=== PATIENT | male | born 1990 | race Caucasian/White ===

== ENCOUNTER 2019-08-08 16:45 | Emergency (ER) | payer MEDICAID, SELFPAY ==
[2019-08-08 16:41] VITALS: BP 149/97; PULSE 88; RESP 20; TEMP 36.5; O2SAT 96
--- NOTE | 2019-08-08 16:45 | ED.GENADUL_ITS ---
Discharge Plan Disposition Patient Disposition: HOME Condition: Improving Discharge Details Chief Complaint: RespSymp Clinical Impression: Acute dehydration, Acute hypokalemia, URI (upper respiratory infection) Primary Care Provider: Elbert Zhao ED Provider: Inna Fernandes Home Meds and New Rx's Prescriptions: Continued valacyclovir 500 MG tablet 500 mg PO DAILY RF: 0 lorazepam 1 MG tablet 1 tab PO PRN PRNRF: 0 trazodone 50 mg Tablet 100 mg PO QHS PRNRF: 0 naltrexone 50 mg Tablet 50 mg PO BID RF: 0 dextroamphetamine-amphetamine [Adderall] 20 mg Tablet 20 mg PO BID RF: 0 gabapentin 300 mg Capsule 300 mg PO DAILY PRNRF: 0 bupropion HCl [Wellbutrin XL] 300 mg Tablet Extended Release 24 Hr 300 mg PO DAILY RF: 0 bupropion HCl [Wellbutrin XL] 150 mg Tablet Extended Release 24 Hr 150 mg PO QAM RF: 0 Discharge Instructions Instructions: Dehydration (ED), Hypokalemia (ED), Upper Respiratory Infection (ED) Additional Instructions: Encourage water intake. Please increase potassium in your diet and begin potassium supplementation. Do not drink alcohol. Please take your medications only as prescribed. At this time, we are assuming you are COVID positive as we are unable to obtain testing and your symptoms are concerning. At this time, there is concern that you have been exposed and may have symptoms of COVID-19. We are unable to obtain testing and you should therefore quarantine for the next 14 days. It is very important that you self-quarantine and stay at home for the next 14 days. Please see attached information on quarantine and helping prevent the spread of this to family and the community. Encourage water intake. You may use Tylenol and/or Ibuprofen as needed for discomfort. Follow directions on label. If you develop difficulty breathing, shortness of breath, severe headaches, stiff neck, chest pain or other new/worsening symptoms please seek care urgently once again. Please CALL prior to coming back. Please contact your primary care to schedule follow-up appointment at the end of the week. You are opting to leave prior to the results of your testing. I will contact you with any unusual results and we will we will need to have these reassessed by her primary care provider Stand Alone Forms: PENDING COVID-19 TESTING Referrals: Elbert Zhao [Primary Care Provider] - Discharge Data Discharge Date/Time-TO BE ENTERED AT DEPARTURE: 08/08/19 20:25 Medical Decision Making Patient is a pleasant 29-year-old male with history of intentional drug overdose, alcohol intoxication, depression, ADHD, ODD, anxiety. He reports that last night he was partying and took large amount of Adderall and excessive amount of alcohol. Patient is on naloxone. He states that he started having shortness of breath and cough today. Also reports that he had a sick contact in recent days with unknown upper respiratory illness. States he did have a low- grade fever at home today. Is endorsing palpitations and a rapid feeling heart rate. Also feels very anxious. Patient states that he last took Adderall at 4 AM today, last alcohol was at 6 AM today. Unknown quantity of either but states that he did take a large amount. EKG was reviewed by Dr. Tanner. Patient has a normal sinus rhythm with a rate of 90 with no acute ischemic changes noted. Patient was unable to tolerate influenza or COVID testing. I did discuss that as he did have a known sick contact, low-grade fever, cough and shortness of breath, he would need to self quarantine at home and presume positive. Patient does appear dehydrated. Many of his symptoms may be associated with his anxiety and secondary to his large amount of alcohol on Adderall intake particularly while actively taking naltrexone. Patient also has not slept in 24 hours which also may be contributing to his symptoms. Contacted by the lab, patient's potassium is 2.7. Will give 20 IV and 40 p.o. Reviewed the remaining labs, patient does have a white count of 14.8. Anion gap of 16. Creatinine is elevated 1.39 this is atypical for the patient. Alk phos is 128 which is elevated for the patient. Total bili is 2.3 which is unusual for him. FINDINGS: Lungs: Unremarkable. No consolidation. Pleural space: Unremarkable. No pleural effusion. No pneumothorax. Heart/Mediastinum: Unremarkable. No cardiomegaly. Bones/joints: Unremarkable. IMPRESSION: No acute findings. Patient is eating/drinking in the department. Is receiving 2L NS. Has received 40 PO potassium, 20 IV. He is feeling much improved and is requesting discharge. I had ordered a repeat BMP and he is refusing to wait for results. He is r equesting discharge. He is much improved, endorses no symptoms at this time. Has capacity to decide to leave early. He has given me his contact information and I will contact him with any persistent abnormalities. We again discussed that at this time, I remain concerned for possible COVID case as he has had cough, fever and exposure to known sick person. He was not able to tolerate testing. He is going to presume positive and self quarantine for hte next 14 days. He states that he lives alone, is able to stay in home without contacts. Information on how to do this will be given. He was instructed to abstain from ETOh and missuse of his prescribed medications. He voices understanding, regrets what occurred last night. Patient had been ETOH free x 1.5 years. He was given strict return precautions. He iwll contact his PCP tmorrow to schedule follow up appointment and check in. I advised he call and not just show up to any appointment. All of his questions and concerns were addressed, he is in agreement with this plan. BMP reviewed after patients time of discharge, his anion gap is much improved, potassium is now within normal limits. HPI General Mode of arrival: ambulatory . Date/Time Provider Initiated Documentation: 08/08/19 17:12 . Limitations to Documentation: no limitations . Information obtained by: patient and RN notes reviewed . History of Present Illness 29 year old M presents to the emergency department with the chief complaint of palpitations, cough, chills, anxious, described as moderate (is not endorsing any pain at this time), and is localized to the chest (cough, anxious with fluttering in her chest). Patient started experiencing this hour(s) and it has been constant. No relieving factors improve symptom(s), No exacerbating factors reported . Patient notes cough, fever/chills and shortness of breath; denies chest pain, headaches, loss of appetite, nausea/vomiting, rash and weakness. Patient did receive the following treatments prior to arrival, none Related Data Home Medications Medication Instructions Recorded Confirmed valacyclovir 500 mg PO DAILY 05/18/15 08/08/19 lorazepam 1 tab PO PRN PRN 12/09/15 08/08/19 bupropion HCl [Wellbutrin XL] 150 mg PO QAM 08/08/19 08/08/19 bupropion HCl [Wellbutrin XL] 300 mg PO DAILY 08/08/19 08/08/19 dextroamphetamine-amphetamine 20 mg PO BID 08/08/19 08/08/19 [Adderall] gabapentin 300 mg PO DAILY PRN 08/08/19 08/08/19 naltrexone 50 mg PO BID 08/08/19 08/08/19 trazodone 100 mg PO QHS PRN 08/08/19 08/08/19 Allergies Allergy/AdvReac Type Severity Reaction Status Date / Time wheat AdvReac Nausea Unverified 08/08/19 16:54 Review of Systems Constitutional Constitutional: Reports as per HPI and Denies headache(s) Eyes Eyes: Reports as per HPI, Denies eye discharge and Denies irritation ENT Ears, Nose, Mouth, and Throat: Reports as per HPI and Denies headache(s) Cardiovascular Cardiovascular: Reports as per HPI, Denies chest pain and Denies dyspnea Respiratory Respiratory: Reports as per HPI and Denies dyspnea Gastrointestinal Gastrointestinal: Reports as per HPI, Denies abdominal pain, Denies change in bowel habits, Denies nausea and Denies vomiting Integumentary/Breasts Skin/Breast: Reports as per HPI and Denies rash Neurologic Neurologic: Reports as per HPI and Denies headache(s) [facility] Social History Smoking/Tobacco Use Status: Former Tobacco Use Alcohol Intake: former Drug use: Current Sobriety Details: 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, last night drank a lot of beers all night long Do you feel safe at home: Yes Do you feel safe in your relationship?: Yes Exam Const General: cooperative, healthy appearing, comfortable, no acute distress, well developed, well groomed and anxious Nutritional Appearance: average body habitus and well nourished Orientation: alert and awake [facility] Head: normal to inspection, normocephalic and atraumatic Ears: hearing grossly normal bilaterally, external ears normal and TM's normal bilaterally General nose exam: external nose normal and nares normal Face and sinus: normal facial exam, sinuses nontender and face symmetric Mouth: oral mucosae normal, lip normal, tongue normal, oropharynx normal and mucous membranes dry (dry) Teeth and gingiva: dentition normal Throat: posterior oropharynx abnormal (erythematous, no tonisillar enlargement, swelling or uvular displacement), tonsils normal and uvula midline Eyes General: appearance normal, both eyes and all related structures Neck Neck: normal visual inspection, full ROM, no lymphadenopathy and no meningeal signs Resp Effort & Inspection: normal respiratory effort, able to speak in complete sentences and no respiratory distress Auscultation: clear to auscultation bilaterally, no rales, no rhonchi and no wheezes Cardio Rate: regular rate Rhythm: regular rhythm Heart Sounds: S1 normal and S2 normal Skin General skin exam: no rashes or lesions noted Neuro General: patient alert and patient awake Cognition: normal cognition Speech: speech normal Gait: normal gait Psych Appearance: grossly normal and well kempt Mental Status: mental status grossly normal Speech and Movement: speech and movement normal
--- NOTE | 2019-08-08 17:00 | DI.RAD_ITS ---
EXAM: XR PORTABLE CHEST AP XR PORTABLE CHEST AP CLINICAL HISTORY: cough, fever. cough, fever TECHNIQUE: 2D digital imaging was performed. COMPARISON: CHEST 2 VIEWS PA,LAT from 09/25/2012 FINDINGS: LUNGS: Clear. No pleural abnormality seen. HEART: Normal. MEDIASTINUM: Normal. OTHER FINDINGS: None. IMPRESSION: No acute pulmonary findings. DATA REPOSITORY: RADIATION DOSE DELIVERED:
--- NOTE | 2019-08-08 17:33 | DI.VRAD_ITS ---
PROCEDURE INFORMATION: Exam: XR Chest, 1 View Exam date and time: 08/08/2019 5:27 PM Age: 29 years old Clinical indication: Cough and fever TECHNIQUE: Imaging protocol: XR of the chest Views: 1 view. COMPARISON: CR CHEST 2 VIEWS PA,LAT 09/25/2012 2:24 PM FINDINGS: Lungs: Unremarkable. No consolidation. Pleural space: Unremarkable. No pleural effusion. No pneumothorax. Heart/Mediastinum: Unremarkable. No cardiomegaly. Bones/joints: Unremarkable. IMPRESSION: No acute findings. Dictated and Authenticated by: Davion Crawford MD. Ordering:CHAY Keith MD
[2019-08-08 17:52] LABS: Abs Immature Grans 0.04 k/cumm (0.0-0.09); Absolute Basophil Count 0.01 k/cumm (0.0-0.2); Absolute Eosinophil Count 0.36 k/cumm (0.0-0.7); Absolute Lymphocyte Count 1.93 k/cumm (1.2-3.4); Absolute Monocyte Count 0.83 k/cumm (0.11-0.7); Absolute Neutrophil Count 11.69 k/cumm (1.2-6.7); Basophils % 0.1; Eosinophils % 2.4; HCT 43.9 % (40.0-50.0); HGB 16.2 g/dL (13.5-17.5); Immature Grans % 0.3 %; Mean Corp. HGB Concentration 36.9 g/dL (32.0-36.0); Mean Corpuscular Hemoglobin 30.4 pg (27.0-33.0); Mean Corpuscular Volume 82.4 fL (80-95); Mean Platelet Volume 9.3 fL (8.0-11.0); Monocytes % 5.6; Neutrophils % 78.6; Platelet Count 370 x1000/uL (130-400); RBC 5.33 m/cumm (4.50-6.00); RBC Distribution Width 14.7 % (11.8-14.1); White Blood Cell Count 14.87 k/cumm (4.4-10.8)
[2019-08-08 17:57] LABS: ALT 33 U/L (16-63); AST 22 U/L (15-37); Albumin 4.5 g/dL (3.4-5.0); Alkaline Phosphatase 128 U/L (46-116); BUN 14 mg/dL (7-18); Bilirubin, Total 2.3 mg/dL (0.2-1.0); CREATININE 1.39 mg/dL (0.70-1.30); Calcium 9.5 mg/dL (8.5-10.1); Chloride 101 mmol/L (98-107); Glucose 102 mg/dL (74-106); Sodium 139 mmol/L (136-145); Total Protein 7.7 g/dL (6.4-8.2)
[2019-08-08 18:01] LABS: Potassium 2.7 mmol/L (3.5-5.1); Troponin I < 0.05 ng/Ml (<0.06)
[2019-08-08] MEDS: Potassium Chloride 20 MEQ TABCR 40 MEQ PO (18:20)
[2019-08-08] MEDS: POTASSIUM CHLORIDE 20 MEQ/100 ML BAG 50 MEQ IVPB (18:20)
[2019-08-08] MEDS: Normal Saline 1,000 ML 1000 ML IV ×2 (18:20→19:27)
[2019-08-08 18:22] VITALS: PULSE 79
[2019-08-08 18:30] VITALS: PULSE 86
[2019-08-08 20:18] LABS: Anion Gap 8.8 mmol/L (3-11); BUN 13 mg/dL (7-18); CO2 25.2 mmol/L (21.0-32.0); CREATININE 1.25 mg/dL (0.70-1.30); Calcium 7.9 mg/dL (8.5-10.1); Chloride 108 mmol/L (98-107); Glucose 82 mg/dL (74-106); Potassium 3.9 mmol/L (3.5-5.1); Sodium 142 mmol/L (136-145)
[2019-08-08 21:23] VITALS: BP 149/97; PULSE 88; RESP 20; TEMP 36.5; O2SAT 96
== END 2019-08-08 20:25 | disposition home or self-care (01) ==
PROVIDERS: Emergency Provider Physician Assistant; PCP Family Medicine
DX: E86.0 Dehydration (principal); E87.6 Hypokalemia; J06.9 Acute upper respiratory infection, unspecified; R00.2 Palpitations; F10.10 Alcohol abuse, uncomplicated; Z72.820 Sleep deprivation
CPT/HCPCS: 36415; 80048; 80053; 87449; 93005; 96361; 96365; 96366; 99285; U0003; 71045; 84484; 85025; 93010; 99284; J3480

== ENCOUNTER 2020-04-19 16:34 | Outpatient (REF) | payer MEDICAID, SELFPAY ==
[2020-04-19 21:28] LABS: Abs Immature Grans 0.03 10^3/uL (0.0-0.06); Absolute Basophil Count 0.05 10^3/uL (0.0-0.2); Absolute Eosinophil Count 0.41 10^3/uL (0.0-0.7); Absolute Lymphocyte Count 1.97 10^3/uL (1.2-3.4); Absolute Monocyte Count 0.65 10^3/uL (0.1-0.8); Absolute Neutrophil Count 8.54 10^3/uL (1.2-6.7); Basophils % 0.4; Eosinophils % 3.5; HCT 54.5 % (40.0-50.0); HGB 18.9 g/dL (13.5-17.5); Immature Grans % 0.3; Lymphocytes % 16.9; MCH 29.5 pg (27.0-33.0); MCHC 34.7 % (32.0-36.0); MPV 9.5 fL (8.0-11.0); Monocytes % 5.6; Neutrophils % 73.3; Nucleated RBC 0 %; Platelet Count 355 10^3/uL (130-400); RBC 6.41 10^6/uL (4.36-5.78); RDW 15.5 % (11.8-14.1); RDW-SD 45.5 fL; WBC 11.65 10^3/uL (4.4-10.8)
[2020-04-19 21:40] LABS: ALT 37 U/L (16-63); AST 21 U/L (15-37); Albumin 5.3 g/dL (3.4-5.0); Alkaline Phosphatase 109 U/L (46-116); Anion Gap 10.7 mmol/L (3-11); BUN 20 mg/dL (7-18); Bilirubin, Total 1.3 mg/dL (0.2-1.0); CO2 27.3 mmol/L (21.0-32.0); CREATININE 1.55 mg/dL (0.70-1.30); Calculated LDL 104 mg/dL (<100); Chloride 96 mmol/L (98-107); Cholesterol 177 mg/dL (<200); Estimated GFR 52.56 (mL/min/1.73m2); Glucose 67 mg/dL (74-106); HDL Cholesterol 43 mg/dL (40-60); Potassium 3.8 mmol/L (3.5-5.1); Sodium 134 mmol/L (136-145); Total Protein 8.9 g/dL (6.4-8.2); Triglyceride 154 mg/dL (<150)
[2020-04-23 10:00] LABS: Hepatitis C Ab w Rflx HCV PCR Negative (Negative)
[2020-04-23 10:45] LABS: HIV-1/2 Ag & Ab Screen Negative (Negative)
[2020-04-23 12:08] LABS: Syphilis Serology (RPR) Negative (Negative)
== END 2020-04-19 16:54 ==
LOC: NCHCN 16:34
PROVIDERS: PCP Family Medicine; Visit Provider Nurse Practitioner Family
DX: Z13.220 Encounter for screening for lipoid disorders (principal); Z11.3 Encounter for screening for infections with a predominantly sexual mode of transmission; Z11.4 Encounter for screening for human immunodeficiency virus [HIV]; Z11.59 Encounter for screening for other viral diseases; Z00.00 Encounter for general adult medical examination without abnormal findings
CPT/HCPCS: 80053; 80061; 86803; 87389; 85025; 86592

== ENCOUNTER 2020-05-22 12:39 | Outpatient (REF) | payer MEDICAID, SELFPAY ==
[2020-05-22 21:30] LABS: Abs Immature Grans 0.01 10^3/uL (0.0-0.06); Absolute Basophil Count 0.04 10^3/uL (0.0-0.2); Absolute Eosinophil Count 0.25 10^3/uL (0.0-0.7); Absolute Lymphocyte Count 1.86 10^3/uL (1.2-3.4); Absolute Monocyte Count 0.61 10^3/uL (0.1-0.8); Absolute Neutrophil Count 5.96 10^3/uL (1.2-6.7); Basophils % 0.5; Eosinophils % 2.9; HCT 44.1 % (40.0-50.0); HGB 15.2 g/dL (13.5-17.5); Immature Grans % 0.1; Lymphocytes % 21.3; MCH 29.3 pg (27.0-33.0); MCHC 34.5 % (32.0-36.0); MPV 9.4 fL (8.0-11.0); Neutrophils % 68.2; Nucleated RBC 0 %; Platelet Count 326 10^3/uL (130-400); RBC 5.19 10^6/uL (4.36-5.78); RDW 14.9 % (11.8-14.1); RDW-SD 46.7 fL; WBC 8.73 10^3/uL (4.4-10.8)
[2020-05-22 21:48] LABS: ALT 39 U/L (16-63); AST 22 U/L (15-37); Albumin 4.6 g/dL (3.4-5.0); Alkaline Phosphatase 84 U/L (46-116); Anion Gap 9.6 mmol/L (3-11); BUN 9 mg/dL (7-18); CO2 24.4 mmol/L (21.0-32.0); CREATININE 1.62 mg/dL (0.70-1.30); Calcium 9.4 mg/dL (8.5-10.1); Chloride 103 mmol/L (98-107); Estimated GFR 49.95 (mL/min/1.73m2); Glucose 69 mg/dL (74-106); Potassium 3.8 mmol/L (3.5-5.1); Sodium 137 mmol/L (136-145)
[2020-05-22 22:29] LABS: Hemoglobin A1C 4.3 % (<5.7)
== END 2020-05-22 12:59 ==
LOC: NCHCN 12:39
PROVIDERS: PCP Family Medicine; Visit Provider Nurse Practitioner Family
DX: D72.829 Elevated white blood cell count, unspecified (principal); R94.5 Abnormal results of liver function studies; E66.3 Overweight; Z83.3 Family history of diabetes mellitus
CPT/HCPCS: 80053; 83036; 85025

== ENCOUNTER 2020-06-21 16:21 | Outpatient (REF) | payer MEDICAID, SELFPAY ==
[2020-06-21 21:37] LABS: ALT 32 U/L (16-63); AST 19 U/L (15-37); Albumin 4.8 g/dL (3.4-5.0); Alkaline Phosphatase 88 U/L (46-116); Anion Gap 13.1 mmol/L (3-11); BUN 9 mg/dL (7-18); CO2 23.9 mmol/L (21.0-32.0); CREATININE 1.3 mg/dL (0.70-1.30); Calcium 9.6 mg/dL (8.5-10.1); Chloride 103 mmol/L (98-107); Glucose 63 mg/dL (74-106); Potassium 3.6 mmol/L (3.5-5.1); Sodium 140 mmol/L (136-145); Total Protein 8.3 g/dL (6.4-8.2)
[2020-06-26 19:43] LABS: Methylphenidate NEGATIVE; Ritalinic Acid 190 ng/mL
[2020-06-28 06:12] LABS: Amphetamine 5981 ng/mL (Cutoff: 25); Amphetamines Interpretation Positive.; MDA (Ecstasy Metabolite) Negative ng/mL (Cutoff: 25); MDMA (Ecstasy) Negative ng/mL (Cutoff: 25); Methamphetamine Negative ng/mL (Cutoff: 25); Phentermine Negative ng/mL (Cutoff: 25); Pseudoephedrine/Ephedrine Negative ng/mL (Cutoff: 25)
== END 2020-06-21 16:22 | disposition home or self-care (01) ==
LOC: NCHCN 16:21
PROVIDERS: PCP Family Medicine; Visit Provider Nurse Practitioner Family
DX: R10.9 Unspecified abdominal pain (principal); Z51.81 Encounter for therapeutic drug level monitoring
CPT/HCPCS: 80053; 80324; 80360

== ENCOUNTER 2020-08-23 15:48 | Outpatient (REF) | payer MEDICAID, SELFPAY ==
[2020-08-23 20:36] LABS: ALT 46 U/L (16-63); AST 19 U/L (15-37); Albumin 4.5 g/dL (3.4-5.0); Alkaline Phosphatase 73 U/L (46-116); Anion Gap 7.7 mmol/L (3-11); BUN 5 mg/dL (7-18); Bilirubin, Total 0.4 mg/dL (0.2-1.0); CO2 27.3 mmol/L (21.0-32.0); CREATININE 1.4 mg/dL (0.70-1.30); Calcium 10.2 mg/dL (8.5-10.1); Chloride 105 mmol/L (98-107); Estimated GFR 59.11 (mL/min/1.73m2); Glucose 83 mg/dL (74-106); Potassium 4.1 mmol/L (3.5-5.1); Sodium 140 mmol/L (136-145); Total Protein 7.5 g/dL (6.4-8.2)
[2020-08-24 12:54] LABS: COVID-19 RT-PCR UVMMC Result Negative (Negative)
[2020-08-27 13:54] LABS: Total Protein 7.2 g/dL (6.3-8.2)
== END 2020-08-23 15:49 | disposition home or self-care (01) ==
LOC: NCHCN 15:48
PROVIDERS: PCP Family Medicine; Visit Provider Nurse Practitioner Family
DX: R94.5 Abnormal results of liver function studies (principal); Z20.822 Contact with and (suspected) exposure to COVID-19
CPT/HCPCS: 80053; U0003; 84165

== ENCOUNTER 2021-01-08 18:07 | Outpatient (REF) | payer MEDICAID, SELFPAY ==
[2021-01-08 20:43] LABS: ALT 32 U/L (16-63); AST 14 U/L (15-37); Albumin 4.3 g/dL (3.4-5.0); Alkaline Phosphatase 89 U/L (46-116); Anion Gap 11.9 mmol/L (3-11); BUN 10 mg/dL (7-18); Bilirubin, Total 0.5 mg/dL (0.2-1.0); CO2 25.1 mmol/L (21.0-32.0); CREATININE 1.4 mg/dL (0.70-1.30); Calcium 8.9 mg/dL (8.5-10.1); Chloride 103 mmol/L (98-107); Estimated GFR 59.11 (mL/min/1.73m2); Glucose 100 mg/dL (74-106); Sodium 140 mmol/L (136-145); Total Protein 7.5 g/dL (6.4-8.2)
[2021-01-09 12:08] LABS: Magnesium 2.2 mg/dL (1.8-2.4)
== END 2021-01-08 18:08 | disposition home or self-care (01) ==
LOC: NCHCN 18:07
PROVIDERS: PCP Family Medicine; Visit Provider Nurse Practitioner Family
DX: R94.4 Abnormal results of kidney function studies (principal); Z51.81 Encounter for therapeutic drug level monitoring
CPT/HCPCS: 80053; 83735

== ENCOUNTER 2022-03-03 14:54 | Outpatient (REF) | payer MEDICAID, SELFPAY ==
[2022-03-03 21:06] LABS: ALT 40 U/L (16-63); AST 21 U/L (15-37); Albumin 4.3 g/dL (3.4-5.0); Alkaline Phosphatase 81 U/L (46-116); Anion Gap 6.8 mmol/L (3-11); BUN 14 mg/dL (7-18); Bilirubin, Total 0.8 mg/dL (0.2-1.0); CO2 27.2 mmol/L (21.0-32.0); CREATININE 1.5 mg/dL (0.70-1.30); Calcium 9.1 mg/dL (8.5-10.1); Chloride 104 mmol/L (98-107); Estimated GFR 63.04 (mL/min/1.73m2); Glucose 78 mg/dL (74-106); Magnesium 2.4 mg/dL (1.8-2.4); Potassium 4.2 mmol/L (3.5-5.1); Sodium 138 mmol/L (136-145); Total Protein 7.5 g/dL (6.4-8.2)
== END 2022-03-03 14:55 | disposition home or self-care (01) ==
LOC: NCHCN 14:54
PROVIDERS: PCP Family Medicine; Visit Provider Nurse Practitioner Family
DX: Z51.81 Encounter for therapeutic drug level monitoring (principal); Z00.00 Encounter for general adult medical examination without abnormal findings
CPT/HCPCS: 80053; 83735

== ENCOUNTER 2022-03-05 16:51 | Outpatient (REF) | payer MEDICAID, SELFPAY ==
[2022-03-05 16:01] LABS: COMMENT (LAB VIEW ONLY) 169.41 mg/dL; Microalb ug/mg Crea 3.2 ug/mg Cr
== END 2022-03-05 16:52 | disposition home or self-care (01) ==
LOC: NCHCN 16:51
PROVIDERS: PCP Family Medicine; Visit Provider Nurse Practitioner Family
DX: N18.2 Chronic kidney disease, stage 2 (mild) (principal)
CPT/HCPCS: 82043; 82570

== ENCOUNTER 2023-02-16 18:25 | Outpatient (REF) | payer MEDICAID, SELFPAY ==
[2023-02-16 18:51] LABS: Abs Immature Grans 0.06 10^3/uL (0.0-0.06); Absolute Basophil Count 0.08 10^3/uL (0.0-0.2); Absolute Eosinophil Count 0.61 10^3/uL (0.0-0.7); Absolute Lymphocyte Count 2.26 10^3/uL (1.2-3.4); Absolute Monocyte Count 0.69 10^3/uL (0.1-0.8); Absolute Neutrophil Count 6.83 10^3/uL (1.2-6.7); Basophils % 0.8; Eosinophils % 5.8; HCT 51.4 % (40.0-50.0); Immature Grans % 0.6; Lymphocytes % 21.5; MCH 29.6 pg (27.0-33.0); MCHC 33.1 % (32.0-36.0); MCV 89 fL (80-95); MPV 10.7 fL (8.0-11.0); Monocytes % 6.6; Neutrophils % 64.7; Platelet Count 255 10^3/uL (130-400); RBC 5.75 10^6/uL (4.36-5.78); RDW 14.8 % (11.8-14.1); RDW-SD 48.5 fL; WBC 10.53 10^3/uL (4.4-10.8)
[2023-02-16 19:07] LABS: ALT 39 U/L (16-63); AST 33 U/L (15-37); Albumin 3.9 g/dL (3.4-5.0); Alkaline Phosphatase 82 U/L (46-116); Anion Gap 11.2 mmol/L (3-11); BUN 16 mg/dL (7-18); Bilirubin, Total 0.5 mg/dL (0.2-1.0); CO2 20.8 mmol/L (21.0-32.0); CREATININE 1.4 mg/dL (0.70-1.30); Calcium 9.5 mg/dL (8.5-10.1); Chloride 103 mmol/L (98-107); Estimated GFR 68.06 (mL/min/1.73m2); Glucose 84 mg/dL (74-106); Potassium 4.6 mmol/L (3.5-5.1); Sodium 135 mmol/L (136-145); Total Protein 7.6 g/dL (6.4-8.2)
== END 2023-02-16 18:26 | disposition home or self-care (01) ==
LOC: NCHCN 18:25
PROVIDERS: PCP Family Medicine; Visit Provider Family Medicine
DX: F41.1 Generalized anxiety disorder (principal); F10.10 Alcohol abuse, uncomplicated; F15.10 Other stimulant abuse, uncomplicated; F90.8 Attention-deficit hyperactivity disorder, other type; R61 Generalized hyperhidrosis; E66.3 Overweight
CPT/HCPCS: 80053; 84443; 85025